=== PATIENT | female | born 1980 | race Two or more races ===

== ENCOUNTER 2017-07-17 09:26 | Outpatient (CLI) | payer OTHER | END 2017-07-17 09:46 | disposition home or self-care (01) | LOC: MAMO-SONO 09:26 | DX: R92.0 Mammographic microcalcification found on diagnostic imaging of breast (principal) ==

== ENCOUNTER 2018-08-21 07:36 | Outpatient (CLI) | payer OTHER | END 2018-08-21 07:43 | disposition home or self-care (01) | LOC: MAMO-SONO 07:36 | DX: N64.0 Fissure and fistula of nipple (principal); Z12.31 Encounter for screening mammogram for malignant neoplasm of breast ==

== ENCOUNTER 2021-12-27 08:45 | Outpatient (CLI) | payer OTHER | END 2021-12-27 08:47 | disposition home or self-care (01) | LOC: MAMO-SONO 08:45 | PROVIDERS: ATTEND Specialist | DX: R92.1 Mammographic calcification found on diagnostic imaging of breast (principal); Z80.3 Family history of malignant neoplasm of breast ==

== ENCOUNTER 2023-08-28 08:14 | Outpatient (CLI) | payer OTHER | END 2023-08-28 08:24 | disposition home or self-care (01) | LOC: MAMO-SONO 08:14 | PROVIDERS: ATTEND Specialist | DX: R92.30 Dense breasts, unspecified (principal); Z80.3 Family history of malignant neoplasm of breast ==

== ENCOUNTER 2025-01-28 07:43 | Outpatient (CLI) | payer OTHER | END 2025-01-28 07:44 | disposition home or self-care (01) | LOC: MAMO-SONO 07:43 | PROVIDERS: ATTEND Specialist | DX: R92.0 Mammographic microcalcification found on diagnostic imaging of breast (principal) ==